=== PATIENT | female | born 1950 | race Caucasian/White ===

== ENCOUNTER → 2018-05-22 | Outpatient (CLI) | payer BC ==
--- NOTE | 2018-05-22 10:34 | RAD ---
Left lower extremity venous Doppler ultrasound History: Left leg pain. Comparison: None. Procedure: Color flow Doppler, Doppler spectral analysis, and 2D images are obtained with and without compression in the area of the common femoral vein, superficial femoral vein - femoral vein junction, main femoral vein (superficial femoral vein) and popliteal vein. Veins of the proximal calf are also imaged. Findings: There is normal color flow, augmentation, and compressibility of all visualized vein segments. No evidence of deep venous thrombus is present. Small Ortez's cyst. Small knee joint effusion. IMPRESSION: No evidence of left lower extremity deep venous thrombosis. Electronically signed by: Haile Vázquez MD (05/22/2018 10:31 AM) [id number]
--- NOTE | 2018-05-22 10:42 | RAD ---
Examination: 2 views of the left knee HISTORY: History of left knee pain COMPARISON: None FINDINGS: There is moderate joint space loss identified in the medial, lateral, patellofemoral compartments. There is no acute fracture or dislocation identified. Small knee joint effusion is identified. Small osteophyte formation identified. Small osteophyte formation identified in the patellofemoral compartment and lateral compartments. Faint soft tissue calcifications identified in the subcutaneous region of the medial distal thigh and the medial proximal calf region. IMPRESSION: Moderate tricompartmental degenerative changes. Electronically signed by: Desean Mckee MD (05/22/2018 10:39 AM) [place] [id number]
== END | disposition home or self-care (01) ==
LOC: PMG 08:55
PROVIDERS: ATTEND Physician Assistant Medical
DX: M25.462 Effusion, left knee (principal); M71.22 Synovial cyst of popliteal space [Baker], left knee; M25.762 Osteophyte, left knee
CPT/HCPCS: 73562; 93971

== ENCOUNTER → 2019-08-24 | Outpatient (CLI) | payer MEDICARE ==
--- NOTE | 2019-08-24 09:31 | CARD ---
MR#: [id number] Date of Study: 08/24/2019 Ordering Physician: KIANA TURNER, Referring Physician: KIANA TURNER Tech: Lorna Sanchez [facility] APPROVED REPORT EXAM: Two-dimensional and M-mode echocardiogram with Doppler and color Doppler. Other Information Quality : Technically LimitedHR: 69bpm Rhythm : OtherTechnically limited study due to body habitus. INDICATION Arrhythmia 2D DIMENSIONS RVDd2.9 (2.9-3.5cm)IVSd1.0 (0.7-1.1cm) Aortic Root(2D)2.6 (2.0-3.7cm)LVDd4.5 (3.9-5.9cm) LVOT Diameter2.2 (1.8-2.4cm)PWd1.0 (0.7-1.1cm) LVDs2.9 (2.5-4.0cm)LVEF(%)55.0 (>50%) M-Mode DIMENSIONS Left Atrium(MM)3.91 (2.5-4.0cm)Aortic Root3.10 (2.2-3.7cm) Aortic Valve AoV Peak Sundar.182.2cm/sAoV VTI35.6cm AO Peak GR.13.3mmHgLVOT Peak Sundar.74.4cm/s LVOT VTI 20.56cmAO Mean GR.7mmHg LEAH (VMAX)1.76wz6TDK (VTI)2.12cm2 Mitral Valve MV E Eftirfaa719.6cm/sMV DECEL UIOQ595na MV A Phhyccff688.4cm/sE/A Ratio0.9 Pulmonary Valve PV Peak Qbnpalnl240.6cm/sPV Peak Grad.5mmHg LEFT VENTRICLE The left ventricle is normal size. There is normal left ventricular wall thickness. The left ventricu lar systolic function is normal and the ejection fraction is within normal range. The Ejection Fracti on is 55-60%. Regional wall motion abnormalities can not be accurately accessed on this technically l imited exam but appears grossly normal on limited views. Transmitral Doppler flow pattern is Grade I- abnormal relaxation pattern. RIGHT VENTRICLE The right ventricle is normal size. There is normal right ventricular wall thickness. The right ventr icular systolic function is normal. ATRIA The left atrium size is normal. The right atrium size is normal. The interatrial septum is intact wit h no evidence for an atrial septal defect or patent foramen ovale as noted on 2-D or Doppler imaging. AORTIC VALVE The aortic valve is probably trileaflet. The aortic valve is not well visualized. Doppler and Color F low revealed no significant aortic regurgitation. There is no significant aortic valvular stenosis. MITRAL VALVE Not well visualized. There is no evidence of mitral valve prolapse. There is no mitral valve stenosis . Doppler and Color Flow revealed no mitral valve regurgitation noted. TRICUSPID VALVE Not well visualized. Doppler and Color Flow revealed no tricuspid valve regurgitation noted. There is no tricuspid valve prolapse or vegetation. There is no tricuspid valve stenosis. PULMONIC VALVE The pulmonic valve is not well visualized. GREAT VESSELS The aortic root is normal in size. The ascending aorta is normal in size. The IVC was not visualized. PERICARDIAL EFFUSION There is no evidence of significant pericardial effusion. Prominent fat pad around the right heart. Critical Notification Critical Value: No <Conclusion> The left ventricular systolic function is normal and the ejection fraction is within normal range. Th e Ejection Fraction is 55-60%. Regional wall motion abnormalities can not be accurately accessed on this technically limited exam bu t appears grossly normal on limited views. Technically very difficult study Signed by : Aung Nielson, Electronically Approved : 08/24/2019 09:31:07
== END | disposition home or self-care (01) ==
LOC: ECHO 08:45
PROVIDERS: ATTEND Physician Assistant Medical
DX: I51.5 Myocardial degeneration (principal); I49.9 Cardiac arrhythmia, unspecified
CPT/HCPCS: 93306

== ENCOUNTER 2019-11-07 18:32 | Emergency (ER) | payer MEDICARE ==
[2019-11-07] MEDS ORDERED: ONDANSETRON PF 4 MG/2 ML VIAL. IVP ONE (19:00)
[2019-11-07 19:36] LABS: BASO # 0.2 x10^3/uL (0.0-0.2); BASO % 1 % (0-3); EOS # 0.1 x10^3/uL (0.0-0.7); EOS % 0 % (0-3); HEMATOCRIT 37.5 % (36.0-47.0); HEMOGLOBIN 12.1 g/dL (12.0-15.5); LYMPH % 13 % (24-48); MEAN CORPUSCULAR HEMOGLOBIN 27 pg (25-35); MEAN CORPUSCULAR HGB CONC 32 g/dL (31-37); MEAN CORPUSCULAR VOLUME 84 fL (79-100); MONO # 0.9 x10^3/uL (0.0-1.1); MONO % 6 % (0-9); NEUT # 11.7 x10^3uL (1.8-7.7); NEUT % 79 % (31-73); PLATELET COUNT 388 x10^3/uL (140-400); RED BLOOD COUNT 4.48 x10^6/uL (3.50-5.40); RED CELL DISTRIBUTION WIDTH 15.3 % (11.5-14.5); WHITE BLOOD COUNT 14.8 x10^3/uL (4.0-11.0)
[2019-11-07 19:39] LABS: CALCIUM 8.7 mg/dL (8.5-10.1); CREATININE 1.3 mg/dL (0.6-1.0); GFR 40.6; POTASSIUM 4.1 mmol/L (3.5-5.1)
[2019-11-07 19:45] LABS: ALBUMIN 3.6 g/dL (3.4-5.0); ALBUMIN/GLOBULIN RATIO 0.8 (1.0-1.7); TOTAL BILIRUBIN 0.5 mg/dL (0.2-1.0); TOTAL PROTEIN 7.9 g/dL (6.4-8.2)
[2019-11-07] MEDS ORDERED: MORPHINE SULFATE 4 MG/ML DISP.SYRIN. IV ONE (20:45)
[2019-11-07] MEDS ORDERED: IV NORMAL SALINE 1,000ML 1,000 ML IV ONE (20:45)
--- NOTE | 2019-11-07 20:54 | RAD ---
Study: CT abdomen and pelvis without contrast Indication: Right flank pain. Comparison: None. Technique: Helical CT imaging performed of the abdomen and pelvis without the use of intravenous contrast. Sagittal and coronal reformats were obtained. One or more of the following individualized dose reduction techniques were utilized for this examination: 1. Automated exposure control 2. Adjustment of the mA and/or kV according to patient size 3. Use of iterative reconstruction technique. Findings: Localized fat interposed between the right and left atrium is only partially visualized but is suggestive of lipomatous hypertrophy of the interatrial septum.. No discrete abnormality of the liver. The gallbladder is not visualized and presumed surgically absent. Unremarkable pancreas, spleen and adrenal glands. Simple density focus at the upper pole the left kidney, image 33 series 2, measuring 1.2 cm and most likely a cyst. Exophytic off the mid left kidney is a 2.0 cm focus with a measured density of approximately 19 Hounsfield units that is incompletely characterized. No nephrolithiasis or hydroureteronephrosis on the left. On the right, staghorn calculi are present. Mild hydroureteronephrosis as well as perinephric and periureteral fat stranding. Four rounded foci of mineralization are present within the dependent aspect of the urinary bladder, image 70 series 4. Simple density cystic focus off the lower pole the right kidney measuring up to 4 cm. The uterus is absent. No adnexal mass. Minimal colonic diverticulosis without diverticulitis. Normal appendix. Diastatic ventral abdominal wall and a tiny fat-containing umbilical hernia. Nonobstructed small bowel. Gastric distention. Multifocal calcific atherosclerosis without aneurysmal dilatation. No free fluid or air. No pathologically enlarged lymph nodes. Mild subcutaneous fatty reticulation involving the patient's pannus and scattered elsewhere. Partially visualized muscular fatty infiltration along the lateral aspect of the proximal left femur, image 142 series 2, favored the sequela of prior injury. Sclerotic focus within the right iliac bone, image 84 series 2, favored a bone island. Broad dextrocurvature of the visualized spinal column with the apex at L1. Operative changes seen at L4-L5. Multilevel facet degeneration most pronounced on the right at L5-S1. Impression: 1. Staghorn calculi within the right kidney as well as four stones layering within the dependent aspect of the urinary bladder. Relatively mild hydroureteronephrosis is present but with perinephric and periureteral fatty stranding. No stone is seen within the ureter and the collecting system dilatation is favored secondary to recent passage of stone(s). The inflammatory changes along the right kidney and ureter could represent a manifestation of obstructive uropathy however an ascending urinary tract infection is not excluded. Recommend correlation with urinalysis. 2. Scattered renal cysts however there is an exophytic structure off the midpole the left kidney measuring up to 2 cm that does not measure simple density. Eventual renal sonography is recommended to better characterize. 3. Gastric distention. No bowel obstruction. Recommend correlation for a history or symptoms of gastroparesis. 4. Incidental finding suggestive of lipomatous hypertrophy of the interatrial septum. Additional chronic findings as detailed above. Electronically signed by: LINCOLN BROWNE MD (11/07/2019 8:51 PM) [id number]
[2019-11-07 22:15] LABS: BILIRUBIN,URINE NEG (NEG); CLARITY,URINE CLOUDY; COLOR,URINE BROWN; GLUCOSE,URINE 100 mg/dL (NEG); NITRITE,URINE POS (NEG)
[2019-11-07 22:16] LABS: AMORPHOUS SEDIMENT,UR PRESENT /HPF; BACTERIA,URINE FEW /HPF (0-FEW); RBC,URINE >40 /HPF (0-2); SQUAMOUS EPITHELIAL CELL,UR FEW /LPF
[2019-11-07] MEDS ORDERED: HYDR-3136 PO (22:26)
[2019-11-07] MEDS ORDERED: CEPH-264 PO (22:26)
[2019-11-07] MEDS ORDERED: ONDA4TAB7 PO (22:26)
[2019-11-07] MEDS ORDERED: cefTRIAXone SODIUM 1 GM VIAL ONE (22:41)
[2019-11-07] MEDS ORDERED: IV NORMAL SALINE 50ML 50 ML ONE (22:41)
[2019-11-07 23:11] VITALS: BP 146/55
--- NOTE | 2019-11-08 19:34 | PHYS DOC ---
Past History Past Medical History: A-Fib, Diabetes, High Cholesterol, Hypertension, Hypothyroid, Other Additional Past Medical Histor: tremors Past Surgical History: Cholecystectomy, Hysterectomy, Other Additional Past Surgical Histo: cardioverson last month Alcohol Use: None Drug Use: None Adult General Chief Complaint Chief Complaint: FLANK PAIN HPI HPI Patient is a 69-year-old female with history of hypertension, A. fib who presents with acute onset right flank pain. Pain is located right upper flank and is nonradiating. Patient reports urinary frequency urgency and burning and mild hematuria. Denies nausea vomiting. No fever chills or sweats. No pain is not worse with palpation movement. No medications or therapy sticking prior to ED arrival. Denies history of kidney stones.] Review of Systems Review of Systems Review symptoms as per history of present illness. All other review symptoms are negative. All other systems were reviewed and found to be within normal limits, except as documented in this note. Current Medications Current Medications Current Medications Medications (Trade) Dose Ordered Sig/Mehran Start Time Stop Time Status Last Admin Dose Admin Ceftriaxone Sodium 1 gm/ Sodium Chloride 50 ml @ 100 mls/hr 1X ONCE 11/07/19 22:45 11/07/19 23:14 DC 11/07/19 22:52 100 MLS/HR Ceftriaxone Sodium (Rocephin) 1 gm STK-MED ONCE 11/07/19 22:41 11/07/19 22:42 DC Fentanyl Citrate (Fentanyl 2ml Vial) 25 mcg 1X ONCE 11/07/19 19:00 11/07/19 19:01 DC 11/07/19 19:12 25 MCG Morphine Sulfate (Morphine 4mg Syringe) 4 mg 1X ONCE 11/07/19 20:45 11/07/19 20:50 DC 11/07/19 20:44 4 MG Ondansetron HCl (Zofran) 4 mg 1X ONCE 11/07/19 19:00 11/07/19 19:01 DC 11/07/19 19:13 4 MG Sodium Chloride 50 ml @ As Directed STK-MED ONCE 11/07/19 22:41 11/07/19 22:42 DC Allergies Allergies Allergies Coded Allergies Type Severity Reaction Last Updated Verified pentazocine Allergy Mild RASH 09/16/19 Yes Physical Exam Physical Exam Constitutional: Well developed, well nourished, no acute distress, non-toxic appearance. [] HENT: Normocephalic, atraumatic, bilateral external ears normal, oropharynx moist, no oral exudates, nose normal. [] Eyes: PERRLA, EOMI, conjunctiva normal, no discharge. [] Neck: Normal range of motion, no tenderness, supple, no stridor. [] Cardiovascular:Heart rate regular rhythm, no murmur [] Lungs & Thorax: Bilateral breath sounds clear to auscultation [] Abdomen: Bowel sounds normal, soft, no tenderness. [] Skin: Warm, dry. [] Back: No tenderness. [] Extremities: No tenderness, no edema. [] Neurologic: Alert and oriented X 3, normal motor function, normal sensory func tion, no focal deficits noted. [] Psychologic: Affect normal, judgement normal, mood normal. [] Current Patient Data Vital Signs Vital Signs Date Time Temp Pulse Resp B/P (MAP) Pulse Ox O2 Delivery O2 Flow Rate FiO2 11/07/19 23:11 63 16 146/55 (85) 93 Room Air Lab Results Laboratory Tests Test 11/07/19 21:33 Urine Collection Type Unknown Urine Color Brown Urine Clarity Cloudy Urine pH 5.0 Urine Specific [place] 1.020 Urine Protein >100 mg/dl (NEG-TRACE) Urine Glucose (UA) 100 mg/dL (NEG) Urine Ketones (Stick) Trace mg/dL (NEG) Urine Blood Large (NEG) Urine Nitrite Pos (NEG) Urine Bilirubin Neg (NEG) Urine Urobilinogen Dipstick 1.0 mg/dL (0.2 mg/dL) Urine Leukocyte Esterase Large (NEG) Urine RBC >40 /HPF (0-2) Urine WBC 5-10 /HPF (0-4) Urine Squamous Epithelial Cells Few /LPF Urine Amorphous Sediment Present /HPF Urine Bacteria Few /HPF (0-FEW) EKG EKG [] Radiology/Procedures Radiology/Procedures CT abdomen pelvis: Staghorm stone on the right kidney with mild hydronephrosis taken of possible recently passed kidney stone radiology report[] Course & Med Decision Making Course & Med Decision Making Pertinent Labs and Imaging studies reviewed. (See chart for details) [Symptoms fully resolved while in the emergency department. Suspect passed stone. Recommend supportive care with PCP follow-up in urology follow-up. Return precautions reviewed. Patient verbalizes understanding agreement discharge instructions prior to departure.] Dragon Disclaimer Dragon Disclaimer This electronic medical record was generated, in whole or in part, using a voice recognition dictation system. Departure Departure: Impression: Primary Impression: Kidney stone Additional Impression: Urinary tract infection Disposition: 01 HOME, SELF-CARE Condition: STABLE Patient Instructions: Kidney Stones, Xwky-[id number], Urinary Tract Infection, [id number] Additional Instructions: Please increase fluids and take antibiotics as directed. Strain urine for stone. Take pain and nausea medication as needed. Follow-up with your PCP for further evaluation and referral to a urologist. Return to the ED if new or worsening symptoms. Scripts Ondansetron Hcl (ZOFRAN) 4 Mg Tablet 1 TAB PO Q6HRS, #10 TAB Prov: EMEKA DICKSON DO 11/07/19 Hydrocodone Bit/Acetaminophen (NORCO 10-325 TABLET) 1 Each Tablet 1 TAB PO TID, #10 TAB Prov: EMEKA DICKSON DO 11/07/19 Cephalexin (KEFLEX) 500 Mg Capsule 1 CAP PO TID for 10 Days, #30 CAP 0 Refills Prov: EMEKA DICKSON DO 11/07/19 Problem Qualifiers EMEKA DICKSON DO Nov 08, 2019 19:34
== END 2019-11-07 23:19 | disposition home or self-care (01) ==
LOC: ER 18:32
DX: N39.0 Urinary tract infection, site not specified (principal); N20.0 Calculus of kidney; I10 Essential (primary) hypertension; I48.91 Unspecified atrial fibrillation; E11.9 Type 2 diabetes mellitus without complications; E78.00 Pure hypercholesterolemia, unspecified; E03.9 Hypothyroidism, unspecified; Z90.49 Acquired absence of other specified parts of digestive tract; Z90.710 Acquired absence of both cervix and uterus; Z88.4 Allergy status to anesthetic agent
CPT/HCPCS: 36415; 74176; 80053; 81001; 85025; 87086; 96365; 96375; 99285; J0696; J2270; J2405; J3010; J7030

== ENCOUNTER 2020-11-05 05:10 | Emergency (ER) | payer MEDICARE ==
[~2020-11-05] VITALS: Ht 157.5 cm; Wt 104.5 kg
[~2020-11-05 05:10] MED LIST: CEPH-264 PO; HYDR-3136 PO; ONDA4TAB7 PO
--- NOTE | 2020-11-05 05:14 | PHYS DOC ---
Past History Past Medical History: A-Fib, Anxiety, Arthritis, Arrhythmia, CAD, Diabetes, High Cholesterol, Hypertension, Hypothyroid, Other Additional Past Medical Histor: tremors (VIRY VAUGHN MD) Past Surgical History: Cholecystectomy, Hysterectomy, Other Additional Past Surgical Histo: cardioverson last month (VIRY VAUGHN MD) Alcohol Use: None Drug Use: None (VIRY VAUGHN MD) General Adult HPI: HPI: "..I have not been able to sleep the last couple days.. because I am so short of breath.. I am worried I maybe got COVID....and my INR was off..Wed. with Janette.. it was 1.3.. .so she increased it to 9mg Coumadin.. I do follow with Dr. Nielson... Patient is a 70 year old female who presents with above hx and complaints of increased dyspnea, chest heaviness, and exposure to Covid by sister and [id number]. Patient has significant medical history of A. fib which started approximately year and 1/2 to 2 years ago. Also history hypertension, diabetes, hypothyroidism, arthritis, elevated cholesterol, tremors, anxiety and morbid obesity. Patient quit smoking approximately 2 years ago. No recent travel outside the [place] area. Patient did get flu vaccination 2 weeks ago. (VIRY VAUGHN MD) Review of Systems: Review of Systems: Constitutional: Denies fever or chills Eyes: Denies change in visual acuity HENT: Denies nasal congestion or sore throat Respiratory: History of cough or shortness of breath Cardiovascular: Denies chest pain or edema GI: Denies abdominal pain, nausea, vomiting, bloody stools or diarrhea : Denies dysuria Musculoskeletal: History of back pain or joint pain Integument: Denies rash Neurologic: Denies headache, focal weakness or sensory changes Endocrine: Denies polyuria or polydipsia Lymphatic: Denies swollen glands Psychiatric: History of anxiety (VIRY VAUGHN MD) Family History: Family History: Sister and hzgzhmx-lz-szl had Covid (VIRY VAUGHN MD) Current Medications: Current Meds: See nursing for home meds (VIRY VAUGHN MD) Allergies: Allergies: Allergies Coded Allergies Type Severity Reaction Last Updated Verified pentazocine Allergy Mild RASH 09/16/19 Yes (VIRY VAUGHN MD) Physical Exam: PE: Constitutional: in acute emotional distress, non-toxic appearance. [] HENT: Normocephalic, atraumatic, bilateral external ears normal, oropharynx moist, no oral exudates, nose normal. [] Eyes: PERRLA, EOMI, conjunctiva normal, no discharge. [] Neck: Normal range of motion, no tenderness, supple, no stridor. Neck circumference more than 17-1/2 inches Cardiovascular: Bradycardia heart rate ill regular rhythm, no murmur, PMI to the left Lungs & Thorax: Bilateral breath sounds equal apex with few basilar crackles on auscultation [] Abdomen: Bowel sounds normal, soft, no tenderness, no masses, no pulsatile masses. Morbidly obese. Multiple old surgery scars. Distended. Skin: Warm, dry, no erythema, no rash. [] Back: No tenderness, no CVA tenderness. Old surgery scar Extremities: No tenderness, no cyanosis, no clubbing, ROM intact, 1+ ankle edema. Arthritic changes. Neurologic: Alert and oriented X 3, moves all extremities on request, does have distal sensory, no focal deficits noted. [] Psychologic: Affect extremely anxious, judgement normal, mood normal. [] (VIRY VAUGHN MD) EKG: EKG: [] (VIRY VAUGHN MD) Radiology/Procedures: Radiology/Procedures: [] (VIRY VAUGHN MD) Heart Score: Risk Factors: Risk Factors: DM, Current or recent (<one month) smoker, HTN, HLP, family history of CAD, obesity. Risk Scores: Score 0 - 3: 2.5% MACE over next 6 weeks - Discharge Home Score 4 - 6: 20.3% MACE over next 6 weeks - Admit for Clinical Observation Score 7 - 10: 72.7% MACE over next 6 weeks - Early Invasive Strategies (VIRY VAUGHN MD) Course & Med Decision Making: Course & Med Decision Making Pertinent Labs and Imaging studies reviewed. (See chart for details) Pt endorsed to Dr. Arora at shift change. Labs, Xrays pending. Impression: 1. Dyspnea 2. Chest Discomfort 3. HTN 4. Afib Hx. 5. Recent Sub Therapeutic INR 1.3 [] (VIRY VAUGHN MD) Course & Med Decision Making 07:41 -labs were obtained which do demonstrate an elevated BNP which raises concern for congestive heart failure. X-ray was also obtained which demonstrates significant cardiomegaly but no other significant findings. This likely represents acute congestive heart failure. Repeat EKG was also obtained which is only demonstrating what appears to be a bradycardia. I discussed the case with the truck driving instructor compo conveyor operator who recommended the patient be discharged and seen in the office this week. (MORRIS ARORA MD) Dragon Disclaimer: Dragon Disclaimer: This electronic medical record was generated, in whole or in part, using a voice recognition dictation system. (VIRY VAUGHN MD) Departure Departure: Impression: Primary Impression: New onset of congestive heart failure Disposition: 01 DC HOME SELF CARE/HOMELESS Condition: GOOD Referrals: KIANA TURNER (PCP) Patient Instructions: Heart Failure, [id number] Additional Instructions: Thank you for visiting our emergency department. You were seen for your shortness of breath. An EKG, chest x-ray and blood work were performed here in the emergency department. So far your blood work and x-ray are most consistent with a condition called congestive heart failure. This is due to an enlarged heart that does not functioning at its full capacity. We recommend that you make an appointment with your truck driving instructor as soon as possible in order to be further evaluated and treated for this condition. You are also tested for COVID-19 initiated obtain your results in 2 to 3 days. Please return the emergency department immediately if you have any sudden worsening of your symptoms, inability to breathe, severe chest pain or fever greater than 101 degreesF Dragon Disclaimer This chart was dictated in whole or in part using Voice Recognition software in a busy, high-work load, and often noisy Emergency Department environment. It may contain unintended and wholly unrecognized errors or omissions. (VIRY VAUGHN MD) VIRY VAUGHN MD Nov 05, 2020 05:14 MORRIS ARORA MD Nov 05, 2020 07:44
[2020-11-05] MEDS ORDERED: IV RINGERS SOLUTION,LACTATED 1,000 ML IV SCH (05:30)
[2020-11-05 05:56] LABS: BASO # 0.1 x10^3/uL (0.0-0.2); BASO % 1 % (0-3); EOS % 0 % (0-3); HEMATOCRIT 36.7 % (36.0-47.0); HEMOGLOBIN 11.3 g/dL (12.0-15.5); LYMPH # 2.2 x10^3/uL (1.0-4.8); LYMPH % 17 % (24-48); MEAN CORPUSCULAR HEMOGLOBIN 25 pg (25-35); MEAN CORPUSCULAR HGB CONC 31 g/dL (31-37); MEAN CORPUSCULAR VOLUME 82 fL (79-100); MONO # 1.2 x10^3/uL (0.0-1.1); MONO % 10 % (0-9); NEUT # 9.3 x10^3uL (1.8-7.7); NEUT % 72 % (31-73); PLATELET COUNT 344 x10^3/uL (140-400); RED BLOOD COUNT 4.49 x10^6/uL (3.50-5.40); WHITE BLOOD COUNT 12.9 x10^3/uL (4.0-11.0)
[2020-11-05 06:13] LABS: CREATININE 1.1 mg/dL (0.6-1.0); GFR 49.1; POTASSIUM 3.5 mmol/L (3.5-5.1)
[2020-11-05 06:16] VITALS: BP 148/70
--- NOTE | 2020-11-05 06:18 | RAD ---
XR CHEST 1V 11/05/2020 5:59 AM INDICATION: Dyspnea COMPARISON: None available TECHNIQUE: Portable frontal view of the chest is provided. FINDINGS: The cardiomediastinal silhouette is enlarged. Lungs are clear. There are no significant pleural effusions. Mild to moderate pulmonary vascular congestion. No pneumo thorax. No suspicious osseous abnormality. IMPRESSION: 1. Findings are compatible with mild to moderate pulmonary vascular congestion. No focal airspace co nsolidation. 2. Findings are compatible with congestive heart failure. Electronically signed by: Julia Connelly MD (11/05/2020 6:16 AM) [facility]
[2020-11-05 06:20] LABS: DIRECT BILIRUBIN 0.2 mg/dL (0.0-0.2); MAGNESIUM 2.1 mg/dL (1.8-2.4); TOTAL BILIRUBIN 0.3 mg/dL (0.2-1.0); TOTAL PROTEIN 6.8 g/dL (6.4-8.2)
[2020-11-05 06:47] LABS: % LYMPHS 11 % (24-48); % MONOS 6 % (0-10); % SEGS 83 % (35-66); PLT ESTIMATE ADEQUATE (ADEQUATE)
--- NOTE | 2020-11-06 09:57 | EKG ---
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
--- NOTE | 2020-11-06 09:57 | EKG ---
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
== END 2020-11-05 08:04 | disposition home or self-care (01) ==
LOC: ER 05:10
DX: I11.0 Hypertensive heart disease with heart failure (principal); I50.9 Heart failure, unspecified; I48.91 Unspecified atrial fibrillation; R79.89 Other specified abnormal findings of blood chemistry; R07.89 Other chest pain; F41.9 Anxiety disorder, unspecified; M19.90 Unspecified osteoarthritis, unspecified site; I25.10 Atherosclerotic heart disease of native coronary artery without angina pectoris; E11.9 Type 2 diabetes mellitus without complications; E78.00 Pure hypercholesterolemia, unspecified; E03.9 Hypothyroidism, unspecified; E66.01 Morbid (severe) obesity due to excess calories; Z20.828 Contact with and (suspected) exposure to other viral communicable diseases; Z68.41 Body mass index [BMI] 40.0-44.9, adult; Z87.891 Personal history of nicotine dependence; Z88.5 Allergy status to narcotic agent
CPT/HCPCS: 36415; 71045; 80048; 80076; 82550; 83690; 83735; 83880; 84443; 84484; 85007; 85025; 85379; 85610; 85730; 93005; 96360; 96361; 99285; C9803; J7120; U0003

== ENCOUNTER 2020-12-15 13:46 | Emergency (ER) | payer MEDICARE ==
[~2020-12-15] VITALS: Ht 157.5 cm; Wt 124.5 kg
[~2020-12-15 13:46] MED LIST changes: -CEFD300C PO; -HYDR-2155 PO
[2020-12-15] MEDS ORDERED: ONDANSETRON PF 4 MG/2 ML VIAL. ONE (13:58)
[2020-12-15] MEDS ORDERED: ONDANSETRON PF 4 MG/2 ML VIAL. IM ONE (14:15)
[2020-12-15 14:27] LABS: BASO # 0.1 x10^3/uL (0.0-0.2); BASO % 1 % (0-3); EOS # 0.1 x10^3/uL (0.0-0.7); EOS % 1 % (0-3); HEMATOCRIT 36.6 % (36.0-47.0); HEMOGLOBIN 11.5 g/dL (12.0-15.5); LYMPH # 1.7 x10^3/uL (1.0-4.8); LYMPH % 16 % (24-48); MEAN CORPUSCULAR HEMOGLOBIN 25 pg (25-35); MEAN CORPUSCULAR HGB CONC 31 g/dL (31-37); MEAN CORPUSCULAR VOLUME 80 fL (79-100); MONO # 0.8 x10^3/uL (0.0-1.1); MONO % 7 % (0-9); NEUT # 8.1 x10^3uL (1.8-7.7); NEUT % 75 % (31-73); PLATELET COUNT 320 x10^3/uL (140-400); RED BLOOD COUNT 4.56 x10^6/uL (3.50-5.40); RED CELL DISTRIBUTION WIDTH 17.7 % (11.5-14.5); WHITE BLOOD COUNT 10.7 x10^3/uL (4.0-11.0)
[2020-12-15 14:28] LABS: CALCIUM 8.4 mg/dL (8.5-10.1); CREATININE 1.1 mg/dL (0.6-1.0); GFR 49.1; POTASSIUM 3.5 mmol/L (3.5-5.1)
[2020-12-15 14:34] LABS: ALBUMIN 3.4 g/dL (3.4-5.0); DIRECT BILIRUBIN 0.2 mg/dL (0.0-0.2); TOTAL BILIRUBIN 0.4 mg/dL (0.2-1.0); TOTAL PROTEIN 7.5 g/dL (6.4-8.2)
--- NOTE | 2020-12-15 14:48 | RAD ---
EXAM: CT Abdomen and Pelvis without IV contrast INDICATION: Reason: flank pain / Spl. Instructions: / History: TECHNIQUE: Multi-detector row CT images were acquired from the lung bases through the abdomen and pel vis without the use of IV contrast. Sagittal and coronal images were acquired from the transaxial mark a. All CT scans performed at this facility utilize dose optimization techniques as appropriate to the exam, including the following: Automated exposure control and adjustment of the mA and/or KV accordi ng to patient size (this includes techniques or standardized protocols for targeted exams where dose is indication/reason for exam). ORAL CONTRAST: None COMPARISON: Noncontrast abdomen pelvis CT 11/07/2019 FINDINGS: The absence of IV contrast limits evaluation of soft tissue pathology. LOWER CHEST: Unremarkable LIVER: Stable tiny left hepatic lobe hypodense lesion too small to characterize but statistically li terrance to be a cyst. Liver otherwise unremarkable. BILIARY SYSTEM: Gallbladder surgically absent. Bile ducts are not dilated. PANCREAS: Unremarkable SPLEEN: Unremarkable ADRENALS: Unremarkable KIDNEYS & URETERS: There is interval decrease in overall stone burden in the right kidney but slight worsening of right hydronephrosis and perinephric soft tissue stranding. New calcifications are evid ent in the right proximal ureter and additional new calcifications are present at the right ureteral orifice in the urinary bladder measuring up to 5 mm (image 114 of series 2) and the distal right uret er, and 10 x 4 mm in the proximal right ureter (image 66 of coronal series 3). Right periureteral sof t tissue stranding is again evident. Stable inferior pole right renal cyst approximately 3.8 cm in di ameter. The left ureter is not dilated and no ureteral stones identified. The left kidney does not show any n onobstructing stones either and there is no left hydronephrosis. There is however a 1.8 cm exophytic oval isodense mass from the superior pole left kidney that is not changed in size in the interval. BLADDER: Calcifications layering along the posterior right urinary bladder wall are present and coul d represent intraluminal or intramural calcifications. REPRODUCTIVE ORGANS: Hysterectomy. GASTROINTESTINAL: The stomach, small bowel, and colon are unremarkable. The appendix is normal. MESENTERY/PERITONEUM/RETROPERITONEUM: Unremarkable VASCULAR: Scattered arterial calcifications. No abdominal aortic aneurysm. LYMPH NODES: No adenopathy OSSEOUS & SOFT TISSUES: Osteopenia and dextroscoliosis. Degenerative changes with interbody prosthes is/graft at L4-L5. IMPRESSION: Extensive right nephrolithiasis with interval migration of some stones into the proximal and distal r ight ureter, resulting in worsening right hydronephrosis and perirenal soft tissue stranding as descr ibed. Electronically signed by: Saira Sequeira MD (12/15/2020 2:46 PM) [id number]
[2020-12-15] MEDS ORDERED: METOCLOPRAMIDE HCL 10 MG/2 ML VIAL. ONE (14:56)
[2020-12-15] MEDS: HYDROmorphone PF 1 MG/ML DISP.SYRIN IV PRN ×2 (14:59→15:55)
[2020-12-15] MEDS ORDERED: IV NORMAL SALINE 1,000ML 1,000 ML IV ONE (15:00)
[2020-12-15] MEDS ORDERED: METOCLOPRAMIDE HCL 10 MG/2 ML VIAL. IVP ONE (15:15)
--- NOTE | 2020-12-15 17:00 | PHYS DOC ---
Past History Past Medical History: A-Fib, Anxiety, Arthritis, Arrhythmia, CAD, Diabetes, High Cholesterol, Hypertension, Hypothyroid, Other Additional Past Medical Histor: tremors Past Surgical History: Cholecystectomy, , Hysterectomy, Tubal ligation, Other Additional Past Surgical Histo: cardioverson, BACK SX Alcohol Use: Rarely Drug Use: None General Adult EDM: Chief Complaint: FLANK PAIN HPI: HPI: This is a pleasant 70-year-old female who presents emergency department today with right-sided flank pain. She has a sharp shooting pain that radiates from the back into the groin. She has a history of kidney stones and has had some hematuria. She denies dysuria or cloudy urine. She denies nausea vomiting. She describes her pain is moderate to severe intermittent and without allev iating factors. Review of systems negative for chest pain shortness of breath fevers or chills. All other review of systems negative. ED course: 70-year-old female presenting with right-sided flank pain found to have multiple ureterolithiasis. She has a urologist at [facility] and would prefer to be transferred to that facility. IV established. IV fluids given along with IV pain medications. The patient was then transferred to [facility] for further treatment and care. Dr. Monson is the accepting physician. Patient was unable to provide a urine specimen for us. Because of the fat stranding I ordered Rocephin to cover for any developing infection until we get a urine specimen. Patient was able to pass a large stone in the emergency department and had substantial relief. On reexamination she is feeling almost entirely better and would like to be discharged home. I had arranged for her to be transferred to [facility] however she does not want to proceed with this as she is feeling so much better. We will discharge her home with oral hydrocodone and an oral cephalosporin. She was instructed to return for any worsening pain or fever or any other concerns. She is to follow-up with urgent care tomorrow morning for reexamination. Follow-up with urology in 3 to 5 days. Review of Systems: Review of Systems: Current Medications: Current Meds: Current Medications Medications (Trade) Dose Ordered Sig/Mehran Start Time Stop Time Status Last Admin Dose Admin Ceftriaxone Sodium 1 gm/ Sodium Chloride 50 ml @ 100 mls/hr 1X ONCE 12/15/20 16:45 12/15/20 17:14 Fentanyl Citrate (Fentanyl 2ml Vial) 50 mcg 1X ONCE 12/15/20 14:15 12/15/20 14:16 DC 12/15/20 14:08 50 MCG Hydromorphone HCl (Dilaudid) 0.5 mg PRN Q30MIN PRN 12/15/20 14:45 12/15/20 15:55 0.5 MG Metoclopramide HCl (Reglan Vial) 10 mg STK-MED ONCE 12/15/20 14:56 12/15/20 14:56 DC Ondansetron HCl (Zofran) 4 mg 1X ONCE 12/15/20 14:15 12/15/20 14:16 DC 12/15/20 14:08 4 MG Sodium Chloride 1,000 ml @ 1,000 mls/hr 1X ONCE 12/15/20 15:00 12/15/20 15:59 DC 12/15/20 14:57 1,000 MLS/HR Allergies: Allergies: Allergies Coded Allergies Type Severity Reaction Last Updated Verified pentazocine Allergy Mild RASH 09/16/19 Yes lorazepam Allergy Unknown 12/15/20 Yes Physical Exam: PE: Constitutional: Well developed, well nourished, appears to be in pain, non-toxic appearance. [] HENT: Normocephalic, atraumatic, bilateral external ears normal, oropharynx moist, no oral exudates, nose normal. [] Eyes: PERRLA, EOMI, conjunctiva normal, no discharge. [] Neck: Normal range of motion, no tenderness, supple, no stridor. [] Cardiovascular:Heart rate regular rhythm, no murmur [] Lungs & Thorax: Bilateral breath sounds clear to auscultation [] Abdomen: Bowel sounds normal, soft, no tenderness, no masses, no pulsatile masses. No rebound tenderness or guarding. Negative McBurney's point. Negative Saucedo sign. Skin: Warm, dry, no erythema, no rash. [] Back: Right-sided CVA tenderness. Nontender midline. Atraumatic Extremities: No tenderness, no cyanosis, no clubbing, ROM intact, no edema. [] Neurologic: Alert and oriented X 3, normal motor function, normal sensory function, no focal deficits noted. [] Psychologic: Affect normal, judgement normal, mood normal. [] Current Patient Data: Labs: Laboratory Tests Test 12/15/20 14:00 White Blood Count 10.7 x10^3/uL (4.0-11.0) Red Blood Count 4.56 x10^6/uL (3.50-5.40) Hemoglobin 11.5 g/dL (12.0-15.5) L Hematocrit 36.6 % (36.0-47.0) Mean Corpuscular Volume 80 fL (79-100) Mean Corpuscular Hemoglobin 25 pg (25-35) Mean Corpuscular Hemoglobin Concent 31 g/dL (31-37) Red Cell Distribution Width 17.7 % (11.5-14.5) H Platelet Count 320 x10^3/uL (140-400) Neutrophils (%) (Auto) 75 % (31-73) H Lymphocytes (%) (Auto) 16 % (24-48) L Monocytes (%) (Auto) 7 % (0-9) Eosinophils (%) (Auto) 1 % (0-3) Basophils (%) (Auto) 1 % (0-3) Neutrophils # (Auto) 8.1 x10^3uL (1.8-7.7) H Lymphocytes # (Auto) 1.7 x10^3/uL (1.0-4.8) Monocytes # (Auto) 0.8 x10^3/uL (0.0-1.1) Eosinophils # (Auto) 0.1 x10^3/uL (0.0-0.7) Basophils # (Auto) 0.1 x10^3/uL (0.0-0.2) Sodium Level 138 mmol/L (136-145) Potassium Level 3.5 mmol/L (3.5-5.1) Chloride Level 102 mmol/L (98-107) Carbon Dioxide Level 24 mmol/L (21-32) Anion Gap 12 (6-14) Blood Urea Nitrogen 15 mg/dL (7-20) Creatinine 1.1 mg/dL (0.6-1.0) H Estimated GFR (Cockcroft-Gault) 49.1 Glucose Level 163 mg/dL (70-99) H Calcium Level 8.4 mg/dL (8.5-10.1) L Total Bilirubin 0.4 mg/dL (0.2-1.0) Direct Bilirubin 0.2 mg/dL (0.0-0.2) Aspartate Amino Transferase (AST) 26 U/L (15-37) Alanine Aminotransferase (ALT) 36 U/L (14-59) Alkaline Phosphatase 79 U/L (46-116) Troponin I Quantitative < 0.017 ng/mL (0-0.055) Total Protein 7.5 g/dL (6.4-8.2) Albumin 3.4 g/dL (3.4-5.0) Lipase 87 U/L (73-393) Vital Signs: Vital Signs Date Time Temp Pulse Resp B/P (MAP) Pulse Ox O2 Delivery O2 Flow Rate FiO2 12/15/20 15:55 20 96 Nasal Cannula 2.0 12/15/20 15:06 68 12/15/20 14:52 168/88 (114) 12/15/20 13:55 98.7 EKG: EKG: [] Radiology/Procedures: Radiology/Procedures: [] Heart Score: Risk Factors: Risk Factors: DM, Current or recent (<one month) smoker, HTN, HLP, family history of CAD, obesity. Risk Scores: Score 0 - 3: 2.5% MACE over next 6 weeks - Discharge Home Score 4 - 6: 20.3% MACE over next 6 weeks - Admit for Clinical Observation Score 7 - 10: 72.7% MACE over next 6 weeks - Early Invasive Strategies Course & Med Decision Making: Course & Med Decision Making Pertinent Labs and Imaging studies reviewed. (See chart for details) [] Dragon Disclaimer: Dragon Disclaimer: This electronic medical record was generated, in whole or in part, using a voice recognition dictation system. Departure Departure: Impression: Primary Impression: Kidney stone Disposition: DC/TRF OTHER TYPE INSTITUTI Condition: STABLE Referrals: KIANA TURNER (PCP) Scripts Cefdinir (CEFDINIR) 300 Mg Capsule 1 CAP PO BID for kidney stones, possible uti for 10 Days, #20 CAP Prov: FRANCIS MORAN MD 12/15/20 Hydrocodone Bit/Acetaminophen (HYDROCODONE-APAP 5-325 ) 1 Each Tablet 1 TAB PO PRN Q6HRS PRN for PAIN for 5 Days, #10 TAB 0 Refills Caution: this medication can make you drowsy. Do not drive or operate heavy machinery when using this medication. Prov: FRANCIS MORAN MD 12/15/20 FRANCIS MORAN MD Dec 15, 2020 16:59
[2020-12-15 17:30] VITALS: BP 158/108
[2020-12-15 17:38] LABS: COLOR,URINE BROWN
[2020-12-15 17:39] LABS: CLARITY,URINE BLOODY; RBC,URINE TNTC /HPF (0-2)
[2020-12-15 17:40] LABS: BACTERIA,URINE FEW /HPF (0-FEW)
[2020-12-15] MEDS ORDERED: HYDR-2155 PO (18:02)
[2020-12-15] MEDS ORDERED: CEFD300C PO (18:06)
[2020-12-15] MEDS ORDERED: IV NORMAL SALINE 50ML 50 ML ONE (18:36)
[2020-12-15] MEDS ORDERED: cefTRIAXone SODIUM 1 GM VIAL ONE (18:36)
== END 2020-12-15 19:11 | disposition short-term general hospital (02) ==
LOC: ER 13:46
DX: N13.2 Hydronephrosis with renal and ureteral calculous obstruction (principal); R31.9 Hematuria, unspecified; I48.91 Unspecified atrial fibrillation; I25.10 Atherosclerotic heart disease of native coronary artery without angina pectoris; E11.9 Type 2 diabetes mellitus without complications; E78.00 Pure hypercholesterolemia, unspecified; I10 Essential (primary) hypertension; E03.9 Hypothyroidism, unspecified; Z90.49 Acquired absence of other specified parts of digestive tract; Z90.710 Acquired absence of both cervix and uterus; Z98.51 Tubal ligation status; Z88.6 Allergy status to analgesic agent; Z88.8 Allergy status to other drugs, medicaments and biological substances
CPT/HCPCS: 36415; 74176; 80048; 80076; 81001; 83690; 84484; 85025; 87077; 87086; 96361; 96365; 96372; 96375; 96376; 99285; J0696; J1170; J2405; J2765; J3010; J7030

== ENCOUNTER → 2020-12-15 | Outpatient (CLI) | payer MEDICARE ==
[~2020-12-15] MED LIST changes: +AMIO200T6 PO; +CEFD300C PO; +FENO145T3 PO; +HYDR-2155 PO; +LEVO175T5 PO; +LISI1TAB37 PO; +LOVA40TA2 PO; +METF-658 PO; +METO-239 PO; +VENL150C PO; +WARF7.5T45 PO
--- NOTE | 2020-12-15 12:35 | CARD ---
MR#: [id number] Date of Study: 12/15/2020 Ordering Physician: WILY BOSS, Referring Physician: WILY BOSS, Tech: Marya Ospina [facility] APPROVED REPORT EXAM: Two-dimensional and M-mode echocardiogram with Doppler and color Doppler. Other Information Quality : Technically Limited Technically limited study due to morbid obesity INDICATION Dyspnea RISK FACTORS Hypertension Hyperlipidemia Diabetes 2D DIMENSIONS Left Atrium(2D)3.6 (1.6-4.0cm)IVSd1.3 (0.7-1.1cm) Aortic Root(2D)2.4 (2.0-3.7cm)LVDd4.2 (3.9-5.9cm) LVOT Diameter2.0 (1.8-2.4cm)PWd1.2 (0.7-1.1cm) LVDs3.2 (2.5-4.0cm)FS (%) 30.0 % SV37.6 mlLVEF(%)60.0 (>50%) Aortic Valve AoV Peak Sundar.259.8cm/sAoV VTI45.4cm AO Peak GR.27.0mmHgLVOT Peak Sundar.155.1cm/s LVOT VTI 31.10cmAO Mean GR.12mmHg LEAH (VMAX)1.69hg7QOH (VTI)2.23cm2 Mitral Valve MV E Ggpqzyvt23.3cm/sMV DECEL OXBO085lt MV A Twpswesg705.6cm/sE/A Ratio0.8 Tricuspid Valve TR P. Ypdibgmy216sc/sRAP XXNDLCZZ8ioQk TR Peak Gr.71wcRpOBHD40vyAd Pulmonary Vein S1 Vqrpwqhv16.2cm/sD2 Wwbvywyk47.7cm/s LEFT VENTRICLE The left ventricle is normal size. There is mild concentric left ventricular hypertrophy. The left ve ntricular systolic function is normal and the ejection fraction is within normal range. The Ejection Fraction is 55-60%. There is normal LV segmental wall motion. Transmitral Doppler flow pattern is Gra de I-abnormal relaxation pattern. RIGHT VENTRICLE The right ventricle is normal size. The right ventricular systolic function is normal. ATRIA The left atrium size is normal. The right atrium size is normal. The interatrial septum is intact wit h no evidence for an atrial septal defect or patent foramen ovale as noted on 2-D or Doppler imaging. AORTIC VALVE The aortic valve is mildly sclerotic Doppler and Color Flow revealed no significant aortic regurgitat ion. Calculated aortic valve area is 2.2 cm2 with maximum pressure gradient of 27 mmHg and mean press ure gradient of 12 mmHg. MITRAL VALVE The mitral valve is calcified but opens well. Mitral annular calcification is mild. There is no evide nce of mitral valve prolapse. There is no mitral valve stenosis. Doppler and Color-flow revealed trac e mitral regurgitation. TRICUSPID VALVE The tricuspid valve is normal in structure and function. Doppler and Color Flow revealed physiologica l tricuspid regurgitation. The PA pressure was estimated at 23 mmHg. There is no tricuspid valve sten osis. PULMONIC VALVE The pulmonic valve is not well visualized. GREAT VESSELS The aortic root is normal in size. The ascending aorta is not well seen. The IVC is normal in size an d collapses >50% with inspiration. PERICARDIAL EFFUSION There is no evidence of significant pericardial effusion. Critical Notification Critical Value: No <Conclusion> The left ventricular systolic function is normal and the ejection fraction is within normal range. Th e Ejection Fraction is 55-60%. There is normal LV segmental wall motion. Signed by : Wily Boss, Electronically Approved : 12/15/2020 12:34:52
== END ==
LOC: ECHO 07:40
PROVIDERS: ATTEND Internal Medicine Cardiovascular Disease
DX: I08.1 Rheumatic disorders of both mitral and tricuspid valves (principal)
CPT/HCPCS: 93306

== ENCOUNTER 2021-09-09 07:48 | Emergency (ER) | payer MEDICARE ==
[~2021-09-09] VITALS: Ht 157.5 cm; Wt 124.5 kg
[~2021-09-09 07:48] MED LIST changes: +AMIO200T54 PO; -AMIO200T6 PO; +CEFD300C PO; +HYDR-2155 PO
[2021-09-09] MEDS ORDERED: HYDROmorphone PF 1 MG/ML DISP.SYRIN IVP ONE ×2 (08:30→12:00)
[2021-09-09] MEDS ORDERED: ONDANSETRON PF 4 MG/2 ML VIAL. IVP ONE ×2 (08:30→12:15)
--- NOTE | 2021-09-09 08:35 | PHYS DOC ---
Past History Past Medical History: A-Fib, Anxiety, Arthritis, Arrhythmia, CAD, Diabetes, High Cholesterol, Hypertension, Hypothyroid, Other Additional Past Medical Histor: tremors Past Surgical History: Cholecystectomy, , Hysterectomy, Tubal ligation, Other Additional Past Surgical Histo: cardioverson, BACK SX Alcohol Use: Rarely Drug Use: None General Adult EDM: Chief Complaint: FLANK PAIN HPI: HPI: 71-year-old female presents with right flank pain. The patient started of sudden onset lower abdominal pain last night around 9 PM. It now radiates across her lower abdomen and her back. It is worse on the right than the left. This feels very similar to when she has had kidney stones in the past. She is concerned about kidney stone this time. She denies fever or chills. She has not noticed any blood in her urine. Review of Systems: Review of Systems: Constitutional: Denies fever or chills Eyes: Denies change in visual acuity HENT: Denies nasal congestion or sore throat Respiratory: Denies cough or shortness of breath Cardiovascular: Denies chest pain or edema GI: Lower abdominal pain, nausea.Denies vomiting, bloody stools or diarrhea : Denies dysuria Musculoskeletal: Right flank pain Integument: Denies rash Neurologic: Denies headache, focal weakness or sensory changes Endocrine: Denies polyuria or polydipsia Lymphatic: Denies swollen glands Psychiatric: Denies depression or anxiety Allergies: Allergies: Allergies Coded Allergies Type Severity Reaction Last Updated Verified pentazocine Allergy Mild RASH 09/09/21 Yes lorazepam Allergy Unknown 09/09/21 Yes Physical Exam: PE: Constitutional: Well developed, well nourished, morbidly obese, mild acute distress, non-toxic appearance. [] HENT: Normocephalic, atraumatic, bilateral external ears normal, oropharynx moist, no oral exudates, nose normal. [] Eyes: PERRLA, EOMI, conjunctiva normal, no discharge. [] Neck: Normal range of motion, no tenderness, supple, no stridor. [] Cardiovascular: Heart rate regular rhythm, no murmur [] Lungs & Thorax: Bilateral breath sounds clear to auscultation [] Abdomen: Bowel sounds normal, soft, no tenderness, no masses, no pulsatile masses. [] Skin: Warm, dry, no erythema, no rash. [] Back: No tenderness, right CVA tenderness. [] Extremities: No tenderness, no cyanosis, no clubbing, ROM intact, no edema. [] Neurologic: Alert and oriented X 3, normal motor function, normal sensory function, no focal deficits noted. [] Psychologic: Affect normal, judgement normal, mood anxious. [] Current Patient Data: Vital Signs: Vital Signs Date Time Temp Pulse Resp B/P (MAP) Pulse Ox O2 Delivery O2 Flow Rate FiO2 09/09/21 08:09 98.7 63 20 183/83 (116) 93 EKG: EKG: [] Radiology/Procedures: Radiology/Procedures: [] Heart Score: C/O Chest Pain: N/A Risk Factors: Risk Factors: DM, Current or recent (<one month) smoker, HTN, HLP, family history of CAD, obesity. Risk Scores: Score 0 - 3: 2.5% MACE over next 6 weeks - Discharge Home Score 4 - 6: 20.3% MACE over next 6 weeks - Admit for Clinical Observation Score 7 - 10: 72.7% MACE over next 6 weeks - Early Invasive Strategies Course & Med Decision Making: Course & Med Decision Making Pertinent Labs and Imaging studies reviewed. (See chart for details) The patient's labs are significant for slightly elevated white count. She has a creatinine of 1.4. Her CT scan is significant for a 7 mm obstructing calculus. There are other findings. See official report for more details. I will give the patient a liter normal saline, 4 mg of Zofran, 1 mg of Dilaudid. The stone is unlikely to pass so I will consult urology for transfer. The patient's most recent urologist was Montana Lynn at [facility]. We will start with them. We spoke with the urology nurse practitioner therapist radiation and she does recommend that the patient be transferred to [facility] for further management. I spoke with Dr. Brendan austin, hospitalist at [facility] and he has accepted the patient for transfer. She will go by ambulance. Given her elevated white count, I will treat her with a gram of Rocephin prior to transfer. The patient is in agreement with this plan. [] Dragon Disclaimer: Dragon Disclaimer: This electronic medical record was generated, in whole or in part, using a voice recognition dictation system. Departure Departure: Impression: Primary Impression: Kidney stone Disposition: SHORT TERM HOSPITAL Condition: STABLE Referrals: KIANA TURNER (PCP) EMEKA RODGERS DO Sep 09, 2021 08:35
[2021-09-09] MEDS ORDERED: IV NORMAL SALINE 1,000ML 1,000 ML IV ONE (08:45)
[2021-09-09 09:08] LABS: BASO # 0.1 x10^3/uL (0.0-0.2); BASO % 1 % (0-3); EOS % 0 % (0-3); HEMATOCRIT 39.7 % (36.0-47.0); HEMOGLOBIN 12.4 g/dL (12.0-15.5); LYMPH # 1.7 x10^3/uL (1.0-4.8); LYMPH % 11 % (24-48); MEAN CORPUSCULAR HEMOGLOBIN 25 pg (25-35); MEAN CORPUSCULAR HGB CONC 31 g/dL (31-37); MEAN CORPUSCULAR VOLUME 80 fL (79-100); MONO # 0.8 x10^3/uL (0.0-1.1); MONO % 5 % (0-9); NEUT # 12.5 x10^3uL (1.8-7.7); NEUT % 83 % (31-73); PLATELET COUNT 383 x10^3/uL (140-400); RED BLOOD COUNT 4.99 x10^6/uL (3.50-5.40); RED CELL DISTRIBUTION WIDTH 18.3 % (11.5-14.5); WHITE BLOOD COUNT 15.1 x10^3/uL (4.0-11.0)
[2021-09-09 09:12] LABS: CALCIUM 9.2 mg/dL (8.5-10.1); CREATININE 1.4 mg/dL (0.6-1.0); GFR 37.1; POTASSIUM 3.9 mmol/L (3.5-5.1)
[2021-09-09 09:18] LABS: ALBUMIN 3.5 g/dL (3.4-5.0); ALBUMIN/GLOBULIN RATIO 0.8 (1.0-1.7); TOTAL BILIRUBIN 0.6 mg/dL (0.2-1.0)
--- NOTE | 2021-09-09 09:31 | RAD ---
Exam Date: 09/09/2021 8:[address] ABDOMEN+PELVIS WO Indication: Reason: right flank pain, hx stones / Spl. Instructions: / History: . TECHNIQUE: CT examination of the abdomen and pelvis was performed without oral or intravenous contra st. One or more of the following dose reduction techniques were utilized: *Automated exposure control (AEC) *Adjustment of mA and/or kV according to patient size *Use of iterative reconstruction technique *CT scan done according to ALARA, or ALARA/IMAGE GENTLY FINDINGS: The visualized lung bases are clear. The liver, gallbladder, spleen, pancreas, and adrenal glands are normal. There is a 7 mm calculus in the distal right ureter resulting in mild to moderate hydroureteronephros is. There are multiple right renal calculi measuring up to 10 mm. There is a 1.8 cm exophytic lesion arising from the midpole of the left kidney posteriorly measuring 24 Hounsfield units, indeterminate though likely a hyperdense cyst. This lesion contains small perip heral calcifications. No left hydronephrosis or hydroureter is seen. No left urinary tract calculi are seen. Urinary blad matthias is normal in appearance. There is no bowel obstruction or inflammation. The appendix is normal. Mild atherosclerotic calcifications are seen. No lymphadenopathy or ascites is seen. Degenerative changes are seen in the spine. IMPRESSION: 7 mm distal right ureteral calculus resulting in mild to moderate hydroureteronephrosis. Additional note on right renal calculi noted. 1.8 cm exophytic lesion arising from the left kidney with mural calcification is indeterminate but li terrance represents a complex cyst. Further workup with nonemergent renal ultrasound is recommended. If renal ultrasound is inconclusive, MRI can be performed. Electronically signed by: Ho Gonzalez MD (09/09/2021 9:29 AM) [id number]
[2021-09-09 10:04] LABS: % LYMPHS 13 % (24-48); % MONOS 4 % (0-10); % MYELOS 2 % (0-0); % SEGS 81 % (35-66)
[2021-09-09 10:05] LABS: PLT ESTIMATE ADEQUATE (ADEQUATE)
[2021-09-09] MEDS ORDERED: cefTRIAXone SODIUM 1 GM VIAL ONE (11:58)
[2021-09-09 12:37] LABS: BACTERIA,URINE FEW /HPF (0-FEW); BILIRUBIN,URINE NEG (NEG); CLARITY,URINE HAZY; COLOR,URINE YELLOW; GLUCOSE,URINE NEG (NEG); NITRITE,URINE NEG (NEG); RBC,URINE 0 /HPF (0-2); SQUAMOUS EPITHELIAL CELL,UR MOD /LPF; UROBILINOGEN,URINE 0.2 mg/dL (0.2 mg/dL)
[2021-09-09 14:30] VITALS: BP 110/48
== END 2021-09-09 15:15 | disposition short-term general hospital (02) ==
LOC: ER 07:48
DX: N13.2 Hydronephrosis with renal and ureteral calculous obstruction (principal); I48.91 Unspecified atrial fibrillation; F41.9 Anxiety disorder, unspecified; M19.90 Unspecified osteoarthritis, unspecified site; I25.10 Atherosclerotic heart disease of native coronary artery without angina pectoris; E11.9 Type 2 diabetes mellitus without complications; E78.00 Pure hypercholesterolemia, unspecified; I10 Essential (primary) hypertension; E03.9 Hypothyroidism, unspecified; Z20.822 Contact with and (suspected) exposure to COVID-19; Z90.49 Acquired absence of other specified parts of digestive tract; Z98.890 Other specified postprocedural states; Z90.710 Acquired absence of both cervix and uterus; Z98.51 Tubal ligation status; Z87.442 Personal history of urinary calculi; Z88.8 Allergy status to other drugs, medicaments and biological substances
CPT/HCPCS: 36415; 74176; 80053; 81001; 85007; 85025; 87086; 87426; 96361; 96365; 96375; 96376; 99285; C9803; J0696; J1170; J2405; J7030; U0003

== ENCOUNTER 2022-04-09 07:40 | Emergency (ER) | payer MEDICARE ==
[~2022-04-09] VITALS: Ht 157.5 cm; Wt 106.3 kg
[~2022-04-09 07:40] MED LIST changes: -VENL150C PO; +VENL150C3 PO
--- NOTE | 2022-04-09 07:44 | PHYS DOC ---
Past History Past Medical History: A-Fib, Anxiety, Arthritis, Arrhythmia, CAD, Diabetes, High Cholesterol, Hypertension, Hypothyroid, Other Additional Past Medical Histor: tremors Past Surgical History: Cholecystectomy, , Hysterectomy, Tubal ligation, Other Additional Past Surgical Histo: cardioverson, BACK SX Alcohol Use: None Drug Use: None General Adult EDM: Chief Complaint: FLANK PAIN HPI: HPI: Patient is a 71-year-old female here with right flank pain, rating to her right lower quadrant/right groin, symptoms began around 3:00 this morning. She reports nausea, no vomiting, denies constipation or diarrhea. She reports that for 6 weeks she has had urinary urgency and frequency. She denies gross hematuria or dysuria. She has been put on 2 rounds of oral antibiotics, the names of which she is not certain, and she reports that she thinks that she had a urine culture the first time she gave a urine sample at a primary care doctor's office, but she does not think that a second urine culture was done. She does not know the results of these urine cultures, does not know the results of the microscopy or UA in general. She denies chest pain, cough, dyspnea. She denies dizziness or diaphoresis. She denies syncope or near syncope. She denies fall or flank or chest or back injury. She denies incontinence of bowel or bladder function. She denies skin rash. Review of Systems: Review of Systems: Constitutional: Denies fever or chills Eyes: Denies change in visual acuity HENT: Denies nasal congestion or sore throat Respiratory: Denies cough. She has chronic and unchanged dyspnea, which has been present for many years Cardiovascular: Denies chest pain or edema GI: She reports right flank pain, right lower quadrant abdominal pain, nausea, denies vomiting, denies constipation or diarrhea symptoms : She reports urinary urgency and frequency. She denies gross hematuria or dysuria. Musculoskeletal: Reports right flank pain. Denies midline or low back pain. Integument: Denies rash Neurologic: Denies headache, focal weakness or sensory changes, denies dizziness or syncope Psychiatric: Anxiety Allergies: Allergies: Allergies Coded Allergies Type Severity Reaction Last Updated Verified pentazocine Allergy Mild RASH 09/09/21 Yes lorazepam Allergy Unknown 09/09/21 Yes Physical Exam: PE: Constitutional: Well developed, well nourished, she appears to be uncomfortable and in pain, she is nontoxic in appearance HEENT: Normocephalic, atraumatic Eyes: Conjunctiva normal, no discharge. [] Neck: Normal range of motion, no tenderness, supple, no stridor. [] Cardiovascular:Heart rate regular rhythm, +2 radial and dorsalis pedis pulses bilaterally Lungs & Thorax: Bilateral breath sounds clear to auscultation [] Abdomen: Abdomen is obese, soft, mildly distended, normal bowel sounds, no CVA tenderness, no palpable pulsatile mass. No flank abdominal ecchymoses. Mild suprapubic and right lower quadrant tenderness. No guarding. No rebound tenderness. No rigidity. Skin: Warm, dry, no erythema, no rash. [] Back: No tenderness, no CVA tenderness. [] Extremities: No tenderness, no cyanosis, no clubbing, ROM intact, bilateral, symmetric 1+ lower extremity/pedal and ankle edema. No calf tenderness. Neurologic: Alert and oriented X 3, normal motor function, normal sensory function, no focal deficits noted. [] Psychologic: She is very anxious, cooperative and pleasant EKG: EKG: [] Radiology/Procedures: Radiology/Procedures: IMAGING REPORT Signed PATIENT: APRIL BONILLA ACCOUNT: [id number] : 1950 LOCATION: ER AGE: 71 SEX: F EXAM STATUS: REG ER ORD. PHYSICIAN: ROGELIO IRWIN DO REASON: R flank pain, urinary urgency PROCEDURE: CT ABDOMEN PELVIS WO CONTRAST CT ABDOMEN+PELVIS WO History: Right flank pain. Comparison: CT abdomen and pelvis 09/09/2021 Technique: Noncontrast CT of the abdomen and pelvis. Findings: There is moderate right hydronephrosis with a proximal right nephrolith measuring 1.3 x 0.9 x 0.7 cm. Benign right lower pole 4.1 cm renal cyst. Multiple additional right nephroliths. Redemonstrated left posterior cortex exophytic cyst measuring 1.7 cm with subtle mural calcification. No left hydronephrosis or nephrolithiasis. The lung bases are clear. Mild enlarged cardiac silhouette with fatty hypertrophy of the intra-atrial septum. The liver, pancreas, spleen and adrenal glands are unremarkable. The gallbladder is absent. The stomach and small bowel are within normal limits. Normal appendix. Mild colonic diverticulosis. No evidence of diverticulitis. The bladder is unremarkable. Status post hysterectomy. Aorta iliac calcification without aneurysm. No adenopathy. No free intraperitoneal air or fluid. Intervertebral disc spacer and posterior decompression at L4-L5. Soft tissues are unremarkable. Impression: 1. Proximal right ureteral stone measuring 1.3 x 0.7 x 0.9 cm causing moderate right hydronephrosis and proximal hydroureter. Multiple additional right nephroliths. ------ Exposure: One or more of the following individualized dose reduction techniques were utilized for this examination: 1. Automated exposure control 2. Adjustment of the mA and/or kV according to patient size 3. Use of iterative reconstruction technique. Electronically signed by: Frank Guerra MD (04/09/2022 8:44 AM) [id number] DICTATED AND SIGNED BY: FRNAK GUERRA MD DATE: 04/09/22829 CC: ROGELIO IRWIN DO; KIANA TURNER PA ~ Heart Score: C/O Chest Pain: No Risk Factors: Risk Factors: DM, Current or recent (<one month) smoker, HTN, HLP, family history of CAD, obesity. Risk Scores: Score 0 - 3: 2.5% MACE over next 6 weeks - Discharge Home Score 4 - 6: 20.3% MACE over next 6 weeks - Admit for Clinical Observation Score 7 - 10: 72.7% MACE over next 6 weeks - Early Invasive Strategies Course & Med Decision Making: Course & Med Decision Making Pertinent Labs and Imaging studies reviewed. (See chart for details) The patient is given IV fluids, IV Zofran x2, IV morphine x2, IV Dilaudid, p.o. Xanax for anxiety. She will require admission for pain control. There are no available hospital beds here, nor is there any urology here at this hospital, she has requested transfer to [facility]. I contacted [place], she is excepted for admission there by Dr. Archer. I have discussed all of the findings, differential diagnosis and plan of care with the patient and her daughter. She is comfortable with the plan for transfer. Took the patient quite a while to urinate, urinalysis is sent to the lab, results are pending at time of transfer, the patient will need to have this followed up by the accepting physician. Ozzie Disclaimer: Ozzie Disclaimer: This electronic medical record was generated, in whole or in part, using a voice recognition dictation system. Departure Departure: Impression: Primary Impression: Left ureteral stone Additional Impressions: Renal colic on left side Hydronephrosis, left Uncontrolled pain Disposition: 02 [facility] ([facility]) Admitting Physician: Other (Dr. Archer) Condition: STABLE Referrals: KIANA TURNER (PCP) ROGELIO IRWIN DO April 09, 2022 07:44
[2022-04-09] MEDS ORDERED: ONDANSETRON PF 4 MG/2 ML VIAL. ONE (07:56)
[2022-04-09] MEDS ORDERED: MORPHINE SULFATE 4 MG/ML DISP.SYRIN. ONE (07:57)
[2022-04-09] MEDS ORDERED: IV NORMAL SALINE 1,000ML 1,000 ML IV ONE (08:00)
[2022-04-09] MEDS ORDERED: ONDANSETRON PF 4 MG/2 ML VIAL. IVP ONE ×2 (08:00→09:15)
[2022-04-09] MEDS ORDERED: MORPHINE SULFATE 4 MG/ML DISP.SYRIN. IV ONE ×2 (08:00→09:00)
[2022-04-09 08:42] LABS: BASO # 0.1 x10^3/uL (0.0-0.2); BASO % 0 % (0-3); EOS % 0 % (0-3); HEMATOCRIT 32.9 % (36.0-47.0); HEMOGLOBIN 10.2 g/dL (12.0-15.5); LYMPH # 1.4 x10^3/uL (1.0-4.8); LYMPH % 10 % (24-48); MEAN CORPUSCULAR HEMOGLOBIN 24 pg (25-35); MEAN CORPUSCULAR HGB CONC 31 g/dL (31-37); MEAN CORPUSCULAR VOLUME 77 fL (79-100); MONO # 0.7 x10^3/uL (0.0-1.1); MONO % 5 % (0-9); NEUT # 12.2 x10^3uL (1.8-7.7); NEUT % 85 % (31-73); PLATELET COUNT 382 x10^3/uL (140-400); RED BLOOD COUNT 4.26 x10^6/uL (3.50-5.40); RED CELL DISTRIBUTION WIDTH 18.6 % (11.5-14.5); WHITE BLOOD COUNT 14.4 x10^3/uL (4.0-11.0)
--- NOTE | 2022-04-09 08:47 | RAD ---
CT ABDOMEN+PELVIS WO History: Right flank pain. Comparison: CT abdomen and pelvis 09/09/2021 Technique: Noncontrast CT of the abdomen and pelvis. Findings: There is moderate right hydronephrosis with a proximal right nephrolith measuring 1.3 x 0.9 x 0.7 cm. Benign right lower pole 4.1 cm renal cyst. Multiple additional right nephroliths. Redemonstrated lef t posterior cortex exophytic cyst measuring 1.7 cm with subtle mural calcification. No left hydroneph rosis or nephrolithiasis. The lung bases are clear. Mild enlarged cardiac silhouette with fatty hypertrophy of the intra-atrial septum. The liver, pancreas, spleen and adrenal glands are unremarkable. The gallbladder is absent. The stomach and small bowel are within normal limits. Normal appendix. Mild colonic diverticulosis. N o evidence of diverticulitis. The bladder is unremarkable. Status post hysterectomy. Aorta iliac calcification without aneurysm. No adenopathy. No free intraperitoneal air or fluid. Intervertebral disc spacer and posterior decompression at L4-L5. Soft tissues are unremarkable. Impression: 1. Proximal right ureteral stone measuring 1.3 x 0.7 x 0.9 cm causing moderate right hydronephrosis and proximal hydroureter. Multiple additional right nephroliths. ------ Exposure: One or more of the following individualized dose reduction techniques were utilized for thi s examination: 1. Automated exposure control 2. Adjustment of the mA and/or kV according to patient size 3. Use of iterative reconstruction technique. Electronically signed by: Frank Chappell MD (04/09/2022 8:44 AM) [id number]
[2022-04-09 08:48] LABS: CALCIUM 8.8 mg/dL (8.5-10.1); CREATININE 1.4 mg/dL (0.6-1.0); GFR 37.1; POTASSIUM 4.1 mmol/L (3.5-5.1)
[2022-04-09 08:54] LABS: ALBUMIN 3.1 g/dL (3.4-5.0); ALBUMIN/GLOBULIN RATIO 0.8 (1.0-1.7); TOTAL BILIRUBIN 0.5 mg/dL (0.2-1.0); TOTAL PROTEIN 7.2 g/dL (6.4-8.2)
[2022-04-09] MEDS ORDERED: ALPRAZolam 0.25 MG TABLET PO ONE (09:00)
[2022-04-09] MEDS ORDERED: ALPRAZolam 0.25 MG TABLET ONE (09:00)
[2022-04-09] MEDS ORDERED: HYDROmorphone PF 1 MG/ML DISP.SYRIN IVP ONE (10:00)
[2022-04-09 10:33] VITALS: BP 184/75
[2022-04-09 10:56] LABS: BACTERIA,URINE MANY /HPF (0-FEW); CLARITY,URINE CLOUDY; COLOR,URINE YELLOW; GLUCOSE,URINE NEG (NEG); NITRITE,URINE POS (NEG); RBC,URINE OCC /HPF (0-2); SQUAMOUS EPITHELIAL CELL,UR MOD /LPF; UROBILINOGEN,URINE 0.2 mg/dL (0.2 mg/dL)
== END 2022-04-09 11:07 | disposition short-term general hospital (02) ==
LOC: ER 07:40
DX: N13.2 Hydronephrosis with renal and ureteral calculous obstruction (principal); I48.91 Unspecified atrial fibrillation; F41.9 Anxiety disorder, unspecified; M19.90 Unspecified osteoarthritis, unspecified site; I25.10 Atherosclerotic heart disease of native coronary artery without angina pectoris; E11.9 Type 2 diabetes mellitus without complications; E78.00 Pure hypercholesterolemia, unspecified; I10 Essential (primary) hypertension; E03.9 Hypothyroidism, unspecified; Z90.49 Acquired absence of other specified parts of digestive tract; Z98.890 Other specified postprocedural states; Z90.710 Acquired absence of both cervix and uterus; Z98.51 Tubal ligation status; Z88.8 Allergy status to other drugs, medicaments and biological substances
CPT/HCPCS: 36415; 74176; 80053; 81001; 83690; 85025; 87077; 87086; 87186; 96361; 96374; 96375; 96376; 99285; J1170; J2270; J2405; J7030